=== PATIENT | female | born 1940 | race Hispanic/Latino ===

== ENCOUNTER 2017-08-23 09:28 | Outpatient (CLI) | payer MEDICARE, OTHER ==
--- NOTE | 2017-08-23 13:58 | XRay Report ---
XRAY LEFT SHOULDER THREE VIEWS: 08/23/17 09:28:00 CLINICAL: Left shoulder pain. FINDINGS: Mild osteopenia. No fracture or dislocation. Mild glenohumeral joint arthritis. Normal AC joint. The soft tissues are normal. IMPRESSION: Mild glenohumeral arthritis.
== END 2017-08-23 09:29 | disposition home or self-care (01) ==
LOC: SPVIMAG 09:28
PROVIDERS: ATTEND Orthopaedic Surgery Sports Medicine
DX: M19.012 Primary osteoarthritis, left shoulder (principal); M85.812 Other specified disorders of bone density and structure, left shoulder